=== PATIENT | male | born 1940 | race Caucasian/White ===

== ENCOUNTER 2022-04-04 22:51 | Emergency (ER) | payer MEDICARE, MEDICAID, SELFPAY ==
[2022-04-04 23:02] VITALS: BP 148/81; BP 166/82; PULSE 81; PULSE 89; RESP 16; TEMP 36.7; O2SAT 97; O2SAT 98; BMI 22.2
--- NOTE | 2022-04-04 23:29 | ED.MALEGU ---
HPI - Male Genitourinary General Chief complaint: Urogenital-Male Stated complaint: groin pain Time Seen by Provider: 04/04/22 23:29 Source: patient Mode of arrival: EMS Limitations: no limitations History of Present Illness HPI Narrative: Patient came from [facility] with suprapubic pain patient had Jacques indwelling Jacques catheter which was removed earlier did not urinate after that bladder scan in the ER showed urine retention more than 1000 mL no vomiting no fever patient does have colostomy bag with soft stool Related Data Allergies Allergy/AdvReac Type Severity Reaction Status Date / Time No Known Allergies Allergy Verified 04/04/22 23:36 Review of Systems Review of Systems: Yes all other systems are reviewed and are negative [facility] Social History Social History Advance Directives: No Physical Exam Vital Signs: Vital Signs: Last Vital Signs Temp 97.6 F 04/05/22 01:51 Pulse 74 04/05/22 01:51 Resp 12 04/05/22 01:51 BP 127/70 04/05/22 01:51 Pulse Ox 97 04/05/22 01:51 O2 Del Method 04/05/22 01:51 BMI result Body Mass Index 22.2 Appearance: Alert. Oriented X3. In mild distress Eyes: PERRLA, No Nystagmus ENT: Pharynx normal. Oral Mucosa moist Neck: Normal inspection. Neck supple. CVS: Normal heart rate and rhythm. Pulses normal. Respiratory: No respiratory distress. Equal air entry bilateral, no wheezing/rales/rhonchi Abdomen: Soft suprapubic fullness and tenderness no hernia palpable. Bowel sounds are present, colostomy bag present with soft stool Skin: Skin warm and dry. Normal skin color. Normal skin turgor. Extremities: No lower extremity edema. No calf tenderness Neuro: Oriented X 3. No motor deficit. Medical Decision Making Medical Decision Making MDM Narrative: Patient acute urinary tension 16 Iranian coude was inserted and drained about and 1000 cc of urine patient felt comfortable discharge patient back to nursing Lab Data Labs: Lab Results 04/05/22 Range/Units 00:03 Urine Color Yellow Urine Appearance Clear Urine pH 8.5 (5.0-9.0) Ur Specific [place] 1.010 (1.005-1.025) Urine Protein Trace (Neg-Trace) mg/dL Urine Glucose (UA) Negative (Negative) mg/dL Urine Ketones Negative (Negative) mg/dL Urine Blood Large (3+) H (Negative) Urine Nitrite Negative (Negative) Ur Leukocyte Esterase Moderate (2+) H (Negative) Urine RBC >20 H (0-2) /HPF Urine WBC 21-50 H (0-5) /HPF Ur Squamous Epith Cells 0-2 (0-2) /HPF Urine Bacteria None Seen (None Seen) Hyaline Casts 3-5 (0-2) /LPF Procedures Catheter Insertion (Urinary) Date of insertion: 04/05/22 Reason for placing: Yes Reason for placing indwelling catheter: Acute urinary retention Bladder scan/ultrasound used before catheterization: Yes Estimated amount of urine (mLs): 1,000 Antiseptic solution prep: Povidone-Iodine Topical anesthesia used: No Catheter type/location: Coude Size (Iranian): 16 Catheter balloon amount: 10 Results: successfully catheterized-immediate flow Procedure performed: without complications Discharge Plan Discharge Clinical Impression: Acute retention of urine Patient Disposition: Xfer LTC Transfer Details: Jacques catheter was placed for urinary retention Instructions: Urinary Retention in Men (ED) Additional Instructions: Jacques catheter care as advised and follow with PCP/urologist Interventions: ED Discharge Assessment Last Done: 04/05/22 02:16 Discharge Date/Time: 04/05/22 02:16 Print Language: Greenlandic
[2022-04-04 23:59] VITALS: BP 133/98; PULSE 83; RESP 16; TEMP 36.7; O2SAT 96
--- NOTE | 2022-04-04 23:59 | MHC.EDTECH ---
0000 rounding and vitals sign taken ,pt was soiled care given ,pt reposition and boosted up in bed ,warm blanket given ,urine sample sent to lab .
--- NOTE | 2022-04-05 00:02 | PC.NURSE ---
15F urinary catheter inserted x 2 attempts. Blood noted on first attempt with straight tip catheter. Re-attempt made with a coude catheter. Pt tolerated well and reports improved relief of pain, 05/26. 1000cc of coudy, dark yellow/vini urine inside collection bag. Urine sample sent to the lab. MD luong.
[2022-04-05 00:13] LABS: Appearance Urine Clear; Color Urine Yellow; Glucose Urine UA Negative (Negative); Leukocyte Esterase Urine Moderate (2+) (Negative); Nitrite Urine Negative (Negative); PH 8.5 (5.0-9.0); UMIC TRIGGER UACC YES; Urine Blood Large (3+) (Negative); Urine Ketones Negative (Negative); Urine Protein Trace mg/dL (Neg-Trace)
[2022-04-05 01:07] LABS: Bacteria Urine None Seen (None Seen); RBC Urine >20 /HPF (0-2); Squamous Epithelial Cell Urine 0-2 /HPF (0-2); UACC Culture Trigger YES; WBC Urine 21-50 /HPF (0-5)
[2022-04-05 01:51] VITALS: BP 127/70; PULSE 74; RESP 12; TEMP 36.4; O2SAT 97
--- NOTE | 2022-04-05 02:14 | PC.NURSE ---
Leg urine collection bag placed. Report provided to nurse Maldonado at [facility]. Pt being discharged and returning to [facility]. Pt aware of plan of care.
== END 2022-04-05 02:16 ==
PROVIDERS: Emergency Provider Internal Medicine; PCP Family Medicine Geriatric Medicine
DX: R33.9 Retention of urine, unspecified (principal); Z93.3 Colostomy status
CPT/HCPCS: 51702; 51798; 81001; 87086; 99284